=== PATIENT | female | born 1965 | race Caucasian/White ===

== ENCOUNTER 2017-07-29 16:26 | Emergency (ER) | END 2017-07-29 23:48 | disposition home or self-care (01) ==

== ENCOUNTER 2017-12-21 14:27 | Emergency (ER) | END 2017-12-21 15:51 | disposition home or self-care (01) ==

== ENCOUNTER 2019-01-24 18:19 | Emergency (ER) | payer BC ==
[~2019-01-24] VITALS: Ht 160 cm; Wt 72.9 kg
[~2019-01-24 18:19] MED LIST: D-ME473S2 PO; ESTR0.5T PO; IBUP-1542 PO; MED4DP PO; SODI126M NASAL
[2019-01-24 18:31] VITALS: Ht 160 cm; Wt 72.9 kg
--- NOTE | 2019-01-24 18:53 | ERD ---
ER Documentation Chief Complaint Chief Complaint weak & feeling tired; started taking Estradiol lately, no Neuro deficits HPI 54-year-old woman complaining of 2 to 3 weeks of generalized dizziness and weakness, feels like a room spinning sensation sometimes she feels like she wants to faint. She has had no fevers or chills, no chest pain or shortness of breath, no loss of consciousness, no slurred speech, no weakness in her arms or legs. Patient does admit to feeling stressed and anxious at times especially over the last 2 to 3 weeks. ROS All systems reviewed and are negative except as per history of present illness. Medications Home Meds Active Scripts Lorazepam* (Ativan*) 0.5 Mg Tablet, 0.5 MG PO Q8H PRN for ANXIETY, #10 TAB Prov:BEVERLY GARCIA MD 01/24/19 Sodium Chloride (Saline Nasal Mist) 126 Ml Mist, 1 SPRAY NASAL DAILY PRN for NASAL CONGESTION for 5 Days, BOTTLE Prov:MARY LUONG PA-C 12/21/17 Methylprednisolone* (Medrol* DOSE PACK) 4 Mg/Dose-Pack Tab.ds.pk, 4 MG PO . DIRECTED for 5 Days, PACKET Prov:MARY LUONG PA-C 12/21/17 Dextromethorphan Hb-Promethazine Hcl* (Promethazine DM* Syrup) 473 Ml Syrup, 5 ML PO Q6 PRN for COUGH for 5 Days, ML Prov:MARY LUONG PA-C 12/21/17 Ibuprofen* (Motrin*) 600 Mg Tab, 600 MG PO Q6, #30 TAB Prov:MAIKEL CASTILLO 07/29/17 Reported Medications Estradiol (Estradiol) 0.5 Mg Tablet, 0.5 MG PO, TAB 11/22/15 Allergies Allergies: Coded Allergies: No Known Allergies (Verified Allergy, Mild, 03/22/15) PMhx/Soc Uterine prolapse, cystocele, status post cholecystectomy and appendectomy, obesity History of Surgery: Yes (LAP CHOLECYSTECTOMY, APPENDECTOMY) Anesthesia Reaction: No Hx Neurological Disorder: No Hx Respiratory Disorders: No Hx Cardiac Disorders: No Hx Psychiatric Problems: No Hx Miscellaneous Medical Probl: No Hx Alcohol Use: No Hx Substance Use: No Hx Tobacco Use: No FmHx Family History: No diabetes Physical Exam Vitals Vital Signs Date Temp Pulse Resp B/P (MAP) Pulse Ox O2 O2 Flow FiO2 Time Delivery Rate 01/24/19 97.6 71 18 138/82 100 Room Air 20:12 (100) 01/24/19 97.6 71 18 140/90 100 Room Air 19:19 (107) 01/24/19 97.6 84 18 170/90 98 18:31 (116) Physical Exam GENERAL: Well-developed, well-nourished, well-hydrated, appears anxious, afebrile HEENT: Moist mucous membranes, pink conjunctiva, no cervical spine tenderness or step-off deformities, no goiter, no jaundice or icterus, extraocular movements intact without pain. No submandibular induration, and no pharyngeal erythema NEURO: Alert and oriented 3, cranial nerves II through XII intact bilaterally, pupils equal round reactive to light, no focal deficits or facial asymmetry, sensation intact distally Strength 5/5 in upper and lower extremities bilaterally CARDIAC: Regular rate and rhythm, no murmurs rubs or gallops LUNGS: Clear bilaterally no wheezing crackles or stridor ABDOMEN: Soft nontender, no guarding, no rigidity, no rebound, no psoas sign no obturator sign. Normoactive bowel sounds SKIN: Warm and dry to touch, no abrasions, contusions, or hematomas, no lacerations, no ecchymosis, no target lesions, and without ulcers EXTREMITIES: No clubbing cyanosis or edema, calves are bilaterally symmetrical, no Homans sign, no popliteal cord sign. Distal pulses equal and bilateral PSYCH: Anxious appearing Result Diagram: 01/24/19190901/24/191909 Results 24 hrs Laboratory Tests Test 01/24/19 19:10 White Blood Count 9.9 10^3/ul Red Blood Count 4.59 10^6/ul Hemoglobin 13.9 g/dl Hematocrit 41.4 % Mean Corpuscular Volume 90.2 fl Mean Corpuscular Hemoglobin 30.3 pg Mean Corpuscular Hemoglobin Concent 33.6 g/dl Red Cell Distribution Width 12.2 % Platelet Count 316 10^3/UL Mean Platelet Volume 10.5 fl Immature Granulocytes % 0.200 % Neutrophils % 56.6 % Lymphocytes % 37.3 % Monocytes % 4.4 % Eosinophils % 0.8 % Basophils % 0.7 % Nucleated Red Blood Cells % 0.0 /100WBC Immature Granulocytes # 0.020 10^3/ul Neutrophils # 5.6 10^3/ul Lymphocytes # 3.7 10^3/ul Monocytes # 0.4 10^3/ul Eosinophils # 0.1 10^3/ul Basophils # 0.1 10^3/ul Nucleated Red Blood Cells # 0.0 10^3/ul Urine Color YELLOW Urine Clarity CLEAR Urine pH 8.0 Urine Specific [place] 1.002 Urine Ketones NEGATIVE mg/dL Urine Nitrite NEGATIVE mg/dL Urine Bilirubin NEGATIVE mg/dL Urine Urobilinogen NEGATIVE mg/dL Urine Leukocyte Esterase NEGATIVE [place]/ul Urine Hemoglobin NEGATIVE mg/dL Urine Glucose NEGATIVE mg/dL Urine Total Protein NEGATIVE mg/dl Sodium Level 139 mmol/L Potassium Level 3.9 mmol/L Chloride Level 105 mmol/L Carbon Dioxide Level 25 mmol/L Anion Gap 9 Blood Urea Nitrogen 13 mg/dl Creatinine 0.69 mg/dl Est Glomerular Filtrat Rate mL/min > 60 mL/min Glucose Level 101 mg/dl Calcium Level 9.8 mg/dl Total Bilirubin 0.2 mg/dl Direct Bilirubin 0.00 mg/dl Indirect Bilirubin 0.2 mg/dl Aspartate Amino Transf (AST/SGOT) 30 IU/L Alanine Aminotransferase (ALT/SGPT) 30 IU/L Alkaline Phosphatase 88 IU/L Troponin I < 0.012 ng/ml Total Protein 8.5 g/dl Albumin 4.7 g/dl Globulin 3.80 g/dl Albumin/Globulin Ratio 1.23 Lipase 123 U/L Current Medications Medications Dose Sig/Clint Start Time Status Last (Trade) Ordered Route PRN Stop Time Admin Dose Reason Admin Lorazepam 0.5 mg ONCE ONCE 01/24/19 DC 01/24/19 (Ativan) PO 19:30 19:18 01/24/19 19:31 Sodium 1,000 ml @ Q1H STAT 01/24/19 DC 01/24/19 Chloride 1,000 mls/hr IV 19:01 19:18 01/24/19 20:00 Ondansetron 4 mg ONCE STAT 01/24/19 DC 01/24/19 HCl (Zofran IV 19:01 19:18 Inj) 01/24/19 19:02 Procedures/MDM IV line was established patient was placed on manager cardiac cath rhythm strip revealed a sinus rhythm at about 80 bpm with upright P and T waves. Patient was afebrile I administered lorazepam 0.5 mg p.o. 1 L normal saline IV, Zofran 4 mg IV. EKG performed, read by me: 72 bpm, normal sinus rhythm, normal axis, no acute ST segment changes, narrow QRS complex, with good R-wave progression in precordial leads. CBC and electrolytes are normal, liver function tests were normal, troponin was negative, urine analysis was negative for infection. Differential diagnoses considered, included but not limited to acute coronary syndrome, pulmonary embolism, aortic dissection, abdominal aortic aneurysm, sepsis, stroke, meningitis, encephalitis, pneumonia, appendicitis, cholecystitis, bowel obstruction, pyelonephritis, nephrolithiasis, cystitis, as well as metabolic, hematologic, and electrolyte abnormalities. As well as abscess, cellulitis, fractures, and dislocations. Patient feels much better at this time, and vital signs are normal, symptoms have improved. I did give strict instructions to return to the ED if symptoms continue or worsen, patient will otherwise follow-up with primary care physician. Patient understood instructions and agreed to plan. Disclaimer: Inadvertent spelling and grammatical errors are likely due to EHR/dictation software use and do not reflect on the overall quality of patient care. Also, please note that the electronic time recorded on this note does not necessarily reflect the actual time of the patient encounter. Departure Diagnosis: Primary Impression: Dizziness Additional Impressions: Vertigo Anxiety Condition: Good BEVERLY GARCIA MD Jan 24, 2019 18:53
[2019-01-24] MEDS ORDERED: SOD CHLORIDE 0.9% 1,000 ML IV STA (19:01)
[2019-01-24] MEDS ORDERED: ONDANSETRON 4 MG INJ IV STA (19:01)
[2019-01-24] MEDS ORDERED: LORAZEPAM 0.5 MG TAB PO ONE (19:30)
[2019-01-24] MEDS ORDERED: LORA-441 PO (19:51)
[2019-01-24 20:12] VITALS: BP 138/82; PULSE 71; RESP 18
== END 2019-01-24 20:13 | disposition home or self-care (01) ==
LOC: E/R 18:19
DX: R42 Dizziness and giddiness (principal); F41.9 Anxiety disorder, unspecified; E66.9 Obesity, unspecified; Z68.28 Body mass index [BMI] 28.0-28.9, adult
CPT/HCPCS: 36415; 80053; 81003; 83690; 84484; 85025; 93005; 96374; J2405; J7030; Z7502; Z7610